=== PATIENT | female | born 1970 ===

== ENCOUNTER 2022-02-07 09:38 | Emergency (ER) | payer MEDICAID ==
[2022-02-07] MEDS ORDERED: Sodium Chloride 0.9% 10 ML Syringe FLUSH PRN (09:50)
[2022-02-07] MEDS ORDERED: Sodium Chloride 0.9% 1,000 ML IV SCH (10:00)
[2022-02-07 11:00] LABS: ESTIMATED GFR 104 mL/min (>60)
[2022-02-07] MEDS ORDERED: OLANZapine 10 MG Vial IM ONE (18:57)
[2022-02-07] MEDS ORDERED: LORazepam 2 MG/ML SDV IM ONE (19:17)
[2022-02-07] MEDS ORDERED: LORazepam 2 MG/ML SDV ONE (19:18)
== END 2022-02-07 21:47 ==
LOC: JD.ED 09:38
DX: T42.4X1A Poisoning by benzodiazepines, accidental (unintentional), initial encounter (principal); F23 Brief psychotic disorder; R45.6 Violent behavior; Z20.822 Contact with and (suspected) exposure to COVID-19
CPT/HCPCS: 36415; 70450; 80053; 80143; 80179; 80306; 80307; 81001; 82140; 82550; 83605; 83690; 83735; 83880; 84443; 84484; 85025; 85379; 85610; 85730; 86140; 87635; 93005; 96360; 96372; 99285; J2060; J3490; J7030; 93010; 99283; U0002